=== PATIENT | female | born 1980 | race Caucasian/White ===

== ENCOUNTER 2016-06-02 15:54 | Emergency (ER) | payer BC ==
[2016-06-02 15:55] VITALS: BMI 23.8
[2016-06-02 16:02] VITALS: RESP 18
--- NOTE | 2016-06-02 17:24 | C.PDOC ---
Time Seen by Provider: 06/02/16 16:06 Chief Complaint (Nursing): Cough, Cold, Congestion History Per: Patient Onset/Duration Of Symptoms: Days (7) Current Symptoms Are (Timing): Still Present Associated Symptoms: Sore Throat, Cough, Sputum, Nasal Congestion Severity: Moderate Additional History Per: Prior Records Past Medical History Reviewed: Historical Data, Nursing Documentation, Vital Signs Vital Signs: Last Vital Signs Temp 97.4 F L 06/02/16 15:59 Pulse 99 H 06/02/16 15:59 Resp 18 06/02/16 15:59 BP 114/79 06/02/16 15:59 Pulse Ox 100 06/02/16 15:59 - Medical History PMH: Asthma, Gastritis Surgical History: No Surg Hx - [facility] Procedures APPLICATION OF SPLINT (10/10/14) INJECT/INFUSE NEC (12/20/12) Family History: States: Unknown Family Hx - Social History Hx Tobacco Use: No Hx Alcohol Use: No Hx Substance Use: No - Immunization History Hx Tetanus Toxoid Vaccination: No Hx Influenza Vaccination: No Hx Pneumococcal Vaccination: No Review Of Systems Except As Marked, All Systems Reviewed And Found Negative. Constitutional: Negative for: Fever, Weakness ENT: Positive for: Nose Congestion, Throat Pain. Negative for: Ear Pain Cardiovascular: Negative for: Chest Pain Respiratory: Positive for: Cough, Shortness of Breath, Sputum. Negative for: Hemoptysis Gastrointestinal: Negative for: Vomiting, Abdominal Pain, Diarrhea Genitourinary: Negative for: Dysuria Musculoskeletal: Negative for: Neck Pain, Back Pain, Leg Pain Skin: Negative for: Rash Neurological: Negative for: Weakness, Numbness, Seizures, Altered Mental Status Physical Exam - Physical Exam Appears: Non-toxic, No Acute Distress Skin: Normal Color, Warm, Dry, No Rash Head: Atraumatic, Normacephalic Eye(s): bilateral: Normal Inspection, PERRL, EOMI Oral Mucosa: Moist Throat: Erythema, No Exudate, No Drooling, No Mass Neck: Normal ROM, Supple Chest: Symmetrical Cardiovascular: Rhythm Regular Respiratory: Normal Breath Sounds, No Accessory Muscle Use Gastrointestinal/Abdominal: Soft, No Tenderness Back: No CVA Tenderness Extremity: Normal ROM, No Pedal Edema, No Calf Tenderness Neurological/Psych: Oriented x3, Normal Speech, Normal Motor, Normal Sensation ED Course And Treatment O2 Sat by Pulse Oximetry: 100 Pulse Ox Interpretation: Normal - Radiology CXR: Interpreted by Me, Viewed By Me CXR Interpretation: Yes: No Acute Disease, Heart Size (WNL) Progress - Interventions Interventions:: Observation - Medications Administered Oral: Corticosteriod - Data Reviewed Data Reviewed: Diagnostic imaging, Old records - Patient Status Patient status: Mostly improved - Continuity of Care Discussed patient case with:: Patient, ED Nurse - Patient Plan Patient Plan: Discharge, F/U with PCP, Continue present meds Disposition Counseled Patient/Family Regarding: Studies Performed, Diagnosis, Need For Followup, Rx Given - Disposition Referrals: Ana Borja MD [Medical Doctor] - Disposition: HOME/ ROUTINE Disposition Time: 17:24 Condition: IMPROVED Additional Instructions: Continue using your Albuterol pump. Follow up with your doctor within 3 days. Return to the ER if you develop high fever, shortness of breath, worsening of symptoms or if you have any other concerns. Prescriptions: Azithromycin [Zithromax] 1 dose PO DAILY #1 pkt predniSONE [predniSONE Tab] 2 tab PO DAILY #8 tab Instructions: Acute Bronchitis (ED) Print Language: YI - Clinical Impression Clinical Impression: Acute bronchitis
[2016-06-02 17:41] VITALS: BP 124/75; PULSE 72; TEMP 98.3; O2SAT 99
--- NOTE | 2016-06-03 08:00 | RAD ---
HISTORY: Cough, SOB COMPARISON: No prior. TECHNIQUE: Chest PA and lateral FINDINGS: LUNGS: No active pulmonary disease. PLEURA: No significant pleural effusion identified. No pneumothorax apparent. CARDIOVASCULAR: Normal. OSSEOUS STRUCTURES: No significant abnormalities. VISUALIZED UPPER ABDOMEN: Normal. OTHER FINDINGS: None. IMPRESSION: No radiographic evidence of pneumonia.
== END 2016-06-02 17:41 | disposition home or self-care (01) ==
LOC: C.ER 15:54
DX: J20.9 Acute bronchitis, unspecified (principal)